=== PATIENT | female | born 1935 | race Caucasian/White ===

== ENCOUNTER 2017-11-02 19:17 | Emergency (ER) | payer MEDICARE, MEDICAID ==
[~2017-11-02] VITALS: Ht 167.6 cm; Wt 103.0 kg
[~2017-11-02 19:17] MED LIST: AMLO10TA13 PO; APIX5TAB3 PO; CARV3.122 PO; DIGO125T PO; ESCI20TA38 PO; FENO160T PO; LEVE250T PO; LEVO25TA7 PO; LOSA25TA21 PO; PANT40TA4 PO
[2017-11-02] MEDS ORDERED: acetaminophen 325mg tablet PO ONE ×2 (20:25)
[2017-11-02 20:41] VITALS: BP 135/88
== END 2017-11-02 20:42 | disposition home or self-care (01) ==
LOC: ER 19:18
DX: S80.11XA Contusion of right lower leg, initial encounter (principal); J44.9 Chronic obstructive pulmonary disease, unspecified; E11.9 Type 2 diabetes mellitus without complications; W10.9XXA Fall (on) (from) unspecified stairs and steps, initial encounter; Y93.89 Activity, other specified; Y92.89 Other specified places as the place of occurrence of the external cause; Y99.8 Other external cause status
CPT/HCPCS: 73564; 99284; A6449

== ENCOUNTER 2018-01-05 12:10 | Emergency (ER) | payer MEDICARE, MEDICAID ==
[~2018-01-05] VITALS: Ht 167.6 cm; Wt 90.0 kg
[~2018-01-05 12:10] MED LIST changes: +LOSA25TA12 PO; -LOSA25TA21 PO
[2018-01-05 12:16] VITALS: BP 126/91
== END 2018-01-05 13:51 | disposition home or self-care (01) ==
LOC: ER 12:10
DX: S40.011A Contusion of right shoulder, initial encounter (principal); S80.01XA Contusion of right knee, initial encounter; S60.222A Contusion of left hand, initial encounter; S60.221A Contusion of right hand, initial encounter; I48.91 Unspecified atrial fibrillation; J44.9 Chronic obstructive pulmonary disease, unspecified; E11.9 Type 2 diabetes mellitus without complications; Z86.69 Personal history of other diseases of the nervous system and sense organs; Z79.01 Long term (current) use of anticoagulants; Z79.899 Other long term (current) drug therapy; Z95.0 Presence of cardiac pacemaker; W01.0XXA Fall on same level from slipping, tripping and stumbling without subsequent striking against object, initial encounter; Y93.89 Activity, other specified; Y92.89 Other specified places as the place of occurrence of the external cause; Y99.8 Other external cause status
CPT/HCPCS: 73030; 73090; 73130; 73564; 99284

== ENCOUNTER 2018-04-26 13:35 | Emergency (ER) | payer MEDICARE, MEDICAID ==
[~2018-04-26] VITALS: Ht 167.6 cm; Wt 114.0 kg
[~2018-04-26 13:35] MED LIST changes: -LOSA25TA12 PO; +LOSA25TA41 PO
[2018-04-26 13:48] VITALS: BP 143/96
== END 2018-04-26 15:25 | disposition home or self-care (01) ==
LOC: ER 13:36
DX: S80.11XA Contusion of right lower leg, initial encounter (principal); I80.9 Phlebitis and thrombophlebitis of unspecified site; I48.91 Unspecified atrial fibrillation; J44.9 Chronic obstructive pulmonary disease, unspecified; E11.9 Type 2 diabetes mellitus without complications; Z88.0 Allergy status to penicillin; Z88.2 Allergy status to sulfonamides; Z88.8 Allergy status to other drugs, medicaments and biological substances; Z79.899 Other long term (current) drug therapy; X58.XXXA Exposure to other specified factors, initial encounter; Y93.89 Activity, other specified; Y92.89 Other specified places as the place of occurrence of the external cause; Y99.8 Other external cause status
CPT/HCPCS: 99284

== ENCOUNTER 2018-06-08 13:00 | Emergency (ER) | payer MEDICARE, MEDICAID ==
[~2018-06-08] VITALS: Ht 167.6 cm; Wt 112.3 kg
[2018-06-08] MEDS ORDERED: CEPH-572 PO (14:11)
[2018-06-08] MEDS ORDERED: [UNRECOGNIZED DRUG - CODE] TOP (14:11)
[2018-06-08] MEDS ORDERED: MUPI22OI30 TOP (14:11)
[2018-06-08 14:24] VITALS: BP 132/104
== END 2018-06-08 14:24 | disposition home or self-care (01) ==
LOC: ER 13:01
DX: L98.498 Non-pressure chronic ulcer of skin of other sites with other specified severity (principal); I48.91 Unspecified atrial fibrillation; J44.9 Chronic obstructive pulmonary disease, unspecified; E11.9 Type 2 diabetes mellitus without complications; Z88.0 Allergy status to penicillin; Z88.2 Allergy status to sulfonamides; Z88.8 Allergy status to other drugs, medicaments and biological substances; Z79.899 Other long term (current) drug therapy
CPT/HCPCS: 99284

== ENCOUNTER 2018-07-06 10:14 | Emergency (ER) | payer MEDICARE, MEDICAID ==
[~2018-07-06] VITALS: Ht 167.6 cm; Wt 112.3 kg
[~2018-07-06 10:14] MED LIST changes: +[UNRECOGNIZED DRUG - CODE] TOP
[2018-07-06] MEDS ORDERED: amLODIPine 5mg tablet PO ONE (11:20)
[2018-07-06] MEDS ORDERED: ipratropium/albuterol 3ml nebule NEB ONE (11:20)
[2018-07-06] MEDS ORDERED: carVEDilol 12.5mg tablet PO ONE (11:24)
[2018-07-06] MEDS ORDERED: CARV-50 PO (11:27)
[2018-07-06] MEDS ORDERED: METH4TAB81 PO (11:27)
[2018-07-06] MEDS ORDERED: NITR0.4T51 SL (11:27)
[2018-07-06] MEDS ORDERED: AZIT-72 PO (11:27)
[2018-07-06 12:14] VITALS: BP 145/88
== END 2018-07-06 12:15 | disposition home or self-care (01) ==
LOC: ER 10:15
DX: J44.1 Chronic obstructive pulmonary disease with (acute) exacerbation (principal); I48.91 Unspecified atrial fibrillation; E11.9 Type 2 diabetes mellitus without complications; Z95.0 Presence of cardiac pacemaker; Z88.0 Allergy status to penicillin; Z88.2 Allergy status to sulfonamides; Z79.899 Other long term (current) drug therapy
CPT/HCPCS: 71046; 93005; 94640; 94760; 99284

== ENCOUNTER 2018-12-09 12:36 | Emergency (ER) | payer MEDICARE, MEDICAID ==
[~2018-12-09] VITALS: Ht 167.6 cm; Wt 120.0 kg
[~2018-12-09 12:36] MED LIST changes: +CARV-50 PO; -CARV3.122 PO; -DIGO125T PO; +METH4TAB81 PO; +NITR0.4T51 SL
[2018-12-09 13:06] LABS: BASOPHILS % (AUTO) 0.5 % (0-1); EOSINOPHILS # (AUTO) 0.1 X10'3 (0-0.9); EOSINOPHILS % (AUTO) 2.4 % (0-6); HEMATOCRIT 41.5 % (35.0-45.0); HEMOGLOBIN 13.9 g/dl (12.0-16.0); LYMPHOCYTES # (AUTO) 1.3 X10'3 (1.1-4.8); LYMPHOCYTES % (AUTO) 22.4 % (21-51); MEAN CORPUSCULAR HEMOGLOBIN 32.2 PG (27.0-31.0); MEAN CORPUSCULAR HGB CONC 33.5 g/dL (33.0-36.5); MEAN CORPUSCULAR VOLUME 96.2 FL (78-98); MEAN PLATELET VOLUME 6.9 FL (7.4-10.4); MONOCYTES # (AUTO) 0.4 X10'3 (0-0.9); MONOCYTES % (AUTO) 6.9 % (2-12); NEUTROPHILS % (AUTO) 67.8 % (42-75); PLATELET COUNT 251 X10'3 (140-440); RED BLOOD COUNT 4.32 X10'6 (4.20-5.60); RED CELL DISTRIBUTION WIDTH 14.1 % (11.5-14.5); WHITE BLOOD COUNT 5.9 X10'3 (4.5-11.0)
[2018-12-09] MEDS ORDERED: predniSONE 20 mg tablet PO ONE (13:20)
[2018-12-09] MEDS ORDERED: ipratropium/albuterol 3ml nebule NEB ONE (13:20)
[2018-12-09 13:25] LABS: ALANINE AMINOTRANSFERASE 25 U/L (12-78); ALBUMIN 3.7 G/DL (3.4-5.0); ALKALINE PHOSPHATASE 50 IU/L (46-116); ANION GAP 9 (8-16); ASPARTATE AMINO TRANSFERASE 17 U/L (10-37); BILIRUBIN,TOTAL 0.7 MG/DL (0.1-1.0); BLOOD UREA NITROGEN 23 MG/DL (7-18); BUN/CREATININE RATIO 20.2 (6.6-38.0); CALCIUM 8.9 MG/DL (8.5-10.1); CHLORIDE 107 MMOL/L (99-107); CREATININE 1.14 MG/DL (0.40-0.90); GLUCOSE 177 MG/DL (70-104); POTASSIUM 4.3 MMOL/L (3.5-5.1); SODIUM 144 MMOL/L (135-145); TOTAL CARBON DIOXIDE 27.9 MMOL/L (24-32); TOTAL PROTEIN 7.4 G/DL (6.4-8.2); eGFR 46 ML/MIN
[2018-12-09] MEDS ORDERED: LEVO750T21 PO (13:50)
[2018-12-09] MEDS ORDERED: PRED20TA PO (13:50)
[2018-12-09 14:03] VITALS: BP 109/75
== END 2018-12-09 13:55 | disposition home or self-care (01) ==
LOC: ER 12:37
DX: J44.1 Chronic obstructive pulmonary disease with (acute) exacerbation (principal); F03.90 Unspecified dementia, unspecified severity, without behavioral disturbance, psychotic disturbance, mood disturbance, and anxiety; I48.91 Unspecified atrial fibrillation; E11.9 Type 2 diabetes mellitus without complications; Z88.0 Allergy status to penicillin; Z88.2 Allergy status to sulfonamides; Z88.8 Allergy status to other drugs, medicaments and biological substances; Z79.899 Other long term (current) drug therapy; Z79.2 Long term (current) use of antibiotics; Z86.69 Personal history of other diseases of the nervous system and sense organs; Z95.0 Presence of cardiac pacemaker
CPT/HCPCS: 36415; 71046; 80053; 83605; 85025; 87040; 94640; 94760; 99284; J7512

== ENCOUNTER 2018-12-18 16:16 | Emergency (ER) | payer MEDICARE, MEDICAID ==
[~2018-12-18] VITALS: Ht 167.6 cm; Wt 117.0 kg
[2018-12-18 19:08] VITALS: BP 114/89
== END 2018-12-18 19:14 | disposition home or self-care (01) ==
LOC: ER 16:16
DX: S46.812A Strain of other muscles, fascia and tendons at shoulder and upper arm level, left arm, initial encounter (principal); M25.551 Pain in right hip; I48.91 Unspecified atrial fibrillation; J44.9 Chronic obstructive pulmonary disease, unspecified; E11.9 Type 2 diabetes mellitus without complications; Z95.0 Presence of cardiac pacemaker; Z86.69 Personal history of other diseases of the nervous system and sense organs; Z88.0 Allergy status to penicillin; Z88.2 Allergy status to sulfonamides; Z88.8 Allergy status to other drugs, medicaments and biological substances; Z79.899 Other long term (current) drug therapy; W18.39XA Other fall on same level, initial encounter; Y93.89 Activity, other specified; Y92.89 Other specified places as the place of occurrence of the external cause; Y99.8 Other external cause status
CPT/HCPCS: 73030; 73502; 99284

== ENCOUNTER 2019-03-01 09:01 | Emergency (ER) | payer MEDICAID, MEDICARE ==
[~2019-03-01] VITALS: Ht 167.6 cm; Wt 115.9 kg
[2019-03-01 10:55] LABS: BASOPHILS # (AUTO) 0.1 X10'3 (0-0.2); EOSINOPHILS # (AUTO) 0.2 X10'3 (0-0.9); EOSINOPHILS % (AUTO) 3.3 % (0-6); HEMOGLOBIN 13.8 g/dl (12.0-16.0); LYMPHOCYTES # (AUTO) 1.4 X10'3 (1.1-4.8); LYMPHOCYTES % (AUTO) 27.6 % (21-51); MEAN CORPUSCULAR HEMOGLOBIN 31.8 PG (27.0-31.0); MEAN CORPUSCULAR HGB CONC 33.6 g/dL (33.0-36.5); MEAN CORPUSCULAR VOLUME 94.7 FL (78-98); MONOCYTES # (AUTO) 0.4 X10'3 (0-0.9); MONOCYTES % (AUTO) 7.8 % (2-12); NEUTROPHILS # (AUTO) 3.1 X10'3 (1.8-7.7); NEUTROPHILS % (AUTO) 60.3 % (42-75); PLATELET COUNT 271 X10'3 (140-440); RED BLOOD COUNT 4.33 X10'6 (4.20-5.60); RED CELL DISTRIBUTION WIDTH 14.1 % (11.5-14.5); WHITE BLOOD COUNT 5.2 X10'3 (4.5-11.0)
[2019-03-01 11:05] LABS: ALANINE AMINOTRANSFERASE 24 U/L (12-78); ALBUMIN 3.6 G/DL (3.4-5.0); ALKALINE PHOSPHATASE 59 IU/L (46-116); ANION GAP 7 (8-16); ASPARTATE AMINO TRANSFERASE 14 U/L (10-37); BILIRUBIN,TOTAL 0.4 MG/DL (0.1-1.0); BLOOD UREA NITROGEN 31 MG/DL (7-18); BUN/CREATININE RATIO 21.2 (6.6-38.0); CHLORIDE 104 MMOL/L (99-107); CREATININE 1.46 MG/DL (0.40-0.90); GLUCOSE 172 MG/DL (70-104); POTASSIUM 4.2 MMOL/L (3.5-5.1); SODIUM 140 MMOL/L (135-145); TOTAL CARBON DIOXIDE 28.8 MMOL/L (24-32); TOTAL PROTEIN 7.2 G/DL (6.4-8.2); eGFR 34 ML/MIN
[2019-03-01] MEDS ORDERED: predniSONE 20 mg tablet PO ONE (11:10)
[2019-03-01] MEDS ORDERED: ipratropium/albuterol 3ml nebule NEB ONE (11:10)
[2019-03-01] MEDS ORDERED: AZIT-72 PO (11:48)
[2019-03-01] MEDS ORDERED: PRED20TA PO (11:48)
[2019-03-01] MEDS ORDERED: LEVO750T21 PO (12:22)
[2019-03-01 12:34] VITALS: BP 101/47
== END 2019-03-01 12:36 | disposition home or self-care (01) ==
LOC: ER 09:02
DX: J44.9 Chronic obstructive pulmonary disease, unspecified (principal); J06.9 Acute upper respiratory infection, unspecified; I48.91 Unspecified atrial fibrillation; E11.9 Type 2 diabetes mellitus without complications; Z86.69 Personal history of other diseases of the nervous system and sense organs; Z95.0 Presence of cardiac pacemaker; Z88.0 Allergy status to penicillin; Z88.2 Allergy status to sulfonamides; Z88.8 Allergy status to other drugs, medicaments and biological substances; Z79.899 Other long term (current) drug therapy
CPT/HCPCS: 36415; 71045; 80053; 84484; 85025; 93005; 94640; 99284; J7512

== ENCOUNTER 2019-03-22 19:38 | Inpatient (IN) | payer MEDICARE, MEDICAID ==
[~2019-03-22] VITALS: Ht 167.6 cm; Wt 117.9 kg
[~2019-03-22 19:38] MED LIST changes: -ESCI20TA38 PO; +ESCI20TA45 PO
--- NOTE | 2019-03-22 20:35 | NUR ---
DR. MCCARTY IN ROOM TO SEE PT.
[2019-03-22 20:44] LABS: BASOPHILS % (AUTO) 0.3 % (0-1); EOSINOPHILS # (AUTO) 0.1 X10'3 (0-0.9); HEMATOCRIT 39.4 % (35.0-45.0); HEMOGLOBIN 13.2 g/dl (12.0-16.0); LYMPHOCYTES # (AUTO) 1.5 X10'3 (1.1-4.8); LYMPHOCYTES % (AUTO) 23.9 % (21-51); MEAN CORPUSCULAR HEMOGLOBIN 31.8 PG (27.0-31.0); MEAN CORPUSCULAR HGB CONC 33.5 g/dL (33.0-36.5); MEAN CORPUSCULAR VOLUME 94.8 FL (78-98); MEAN PLATELET VOLUME 7.4 FL (7.4-10.4); MONOCYTES # (AUTO) 0.6 X10'3 (0-0.9); MONOCYTES % (AUTO) 9.3 % (2-12); NEUTROPHILS % (AUTO) 64.5 % (42-75); PLATELET COUNT 204 X10'3 (140-440); RED BLOOD COUNT 4.16 X10'6 (4.20-5.60); RED CELL DISTRIBUTION WIDTH 14.4 % (11.5-14.5); WHITE BLOOD COUNT 6.3 X10'3 (4.5-11.0)
[2019-03-22 20:52] LABS: PARTIAL THROMBOPLASTIN TIME 32 SECONDS (22-32)
[2019-03-22 20:54] LABS: ALANINE AMINOTRANSFERASE 28 U/L (12-78); ALBUMIN 3.7 G/DL (3.4-5.0); ALBUMIN/GLOBULIN RATIO 1.2 (1.1-1.5); ALKALINE PHOSPHATASE 54 IU/L (46-116); ANION GAP 10 (8-16); ASPARTATE AMINO TRANSFERASE 22 U/L (10-37); BILIRUBIN,TOTAL 0.7 MG/DL (0.1-1.0); BLOOD UREA NITROGEN 28 MG/DL (7-18); BUN/CREATININE RATIO 21.2 (6.6-38.0); CALCIUM 8.6 MG/DL (8.5-10.1); CHLORIDE 109 MMOL/L (99-107); CREATININE 1.32 MG/DL (0.40-0.90); GLUCOSE 99 MG/DL (70-104); SODIUM 145 MMOL/L (135-145); TOTAL CARBON DIOXIDE 26.2 MMOL/L (24-32); TOTAL PROTEIN 6.8 G/DL (6.4-8.2); eGFR 39 ML/MIN
[2019-03-22 21:01] LABS: MAGNESIUM 1.8 MG/DL (1.5-2.4)
[2019-03-22 22:32] LABS: CLARITY,URINE SLIGHTLY CLOUDY (Clear); COLOR,URINE AMBER (Yellow); GLUCOSE, URINE NEGATIVE (Neg); KETONES,URINE NEGATIVE (Neg); LEUKOCYTE ESTERASE ,URINE NEGATIVE (Neg); NITRITES, URINE POSITIVE (Neg); OCCULT BLOOD,URINE NEGATIVE (Neg); PROTEIN,URINE 30 mg/dl (Neg)
[2019-03-22 23:06] LABS: UA COLLECTION TYPE STRAIGHT CATH
[2019-03-22 23:10] LABS: BACTERIA,URINE 4+ /HPF (Neg); MUCUS STRANDS NONE SEEN /LPF (Neg); RBC,URINE NONE SEEN /HPF (0-2); SQUAMOUS EPITHELIAL CELL,UR NONE SEEN /LPF (FEW); WBC,URINE 0-4 /HPF (0-4)
[2019-03-22 23:11] LABS: TRANSITIONAL EPI CELLS,URINE MODERATE /HPF
[2019-03-22] MEDS ORDERED: ciprofloxacin lact 400MG/200ML 200 ML IV SCH (23:25)
[2019-03-23] MEDS ORDERED: TRIA1TAB3 PO (00:51)
[2019-03-23] MEDS ORDERED: ACET-2119 PO (00:52)
[2019-03-23] MEDS ORDERED: HYDR-4383 PO (00:52)
[2019-03-23] MEDS ORDERED: LORA10CA PO (00:54)
[2019-03-23] MEDS ORDERED: DILT-94 PO (00:55)
[2019-03-23] MEDS ORDERED: NITR0.4T51 SL (00:56)
[2019-03-23] MEDS ORDERED: SUMA25TA35 PO (00:57)
[2019-03-23] MEDS ORDERED: OSC500T PO (00:58)
[2019-03-23] MEDS ORDERED: ASCO500C15 PO (00:59)
[2019-03-23] MEDS ORDERED: acetaminophen 325mg tablet PO PRN (01:35)
[2019-03-23] MEDS ORDERED: mag hydrox/Alum hydrox/simeth 30ml oral suspension PO PRN (01:35)
[2019-03-23] MEDS ORDERED: ondansetron/PF 4mg/2ml inj IV PRN (01:35)
[2019-03-23] MEDS ORDERED: magnesium hydroxide 30ml (MOM) UD suspension PO PRN (01:35)
[2019-03-23] MEDS ORDERED: nitroGLYCERIN 0.4mg SUBLingual tab SL PRN (01:35)
[2019-03-23 04:30] VITALS: BP 175/123
[2019-03-23 06:00] VITALS: BP 173/117
--- NOTE | 2019-03-23 06:59 | NUR ---
REPORT TO LEIGH
--- NOTE | 2019-03-23 07:59 | NUR ---
PAGER ID: [phone] MESSAGE: [phone] LAURITA MANLEY Heart rate has been in the 120's -130's underlined pacer in Afibb. Also BP at 0600 173/117, I will give BP meds early then recheck. Marie [phone]
[2019-03-23] MEDS: apixaban 5mg tablet PO SCH (08:07)
[2019-03-23] MEDS: acetaminophen 325mg tablet PO SCH ×2 (08:07→19:51)
[2019-03-23] MEDS: levoTHYROXINE 25mcg tablet PO SCH (08:07)
[2019-03-23] MEDS: levetiracetam 250mg tablet PO SCH ×2 (08:07→19:51)
[2019-03-23] MEDS: diltiazem 30mg tablet PO SCH ×2 (08:08→16:22)
[2019-03-23] MEDS: carVEDilol 12.5mg tablet PO SCH ×2 (08:08→19:51)
[2019-03-23] MEDS: pantoprazole 40mg Tablet.DR PO SCH (08:08)
[2019-03-23] MEDS: ESCITALOPRAM OXALATE 5 MG TABLET PO SCH (08:12)
[2019-03-23 10:00] VITALS: BP 146/96
[2019-03-23] MEDS: ciprofloxacin 250mg tablet PO SCH ×2 (13:08→19:51)
[2019-03-23 18:00] VITALS: BP 137/113
[2019-03-23 19:45] VITALS: BP 169/118
[2019-03-23] MEDS: HYDROcodone/acetaminophen 5mg/325mg tablet PO PRN (21:26)
[2019-03-23 22:00] VITALS: BP 153/104
[2019-03-24] VITALS (9 sets, daily range): BP systolic 142–195; BP diastolic 107–135
[2019-03-24] MEDS: diltiazem 30mg tablet PO SCH ×3 (00:16→16:00)
[2019-03-24] MEDS: acetaminophen 325mg tablet PO SCH ×2 (00:25→08:18)
--- NOTE | 2019-03-24 02:55 | NUR ---
notified Dr. Feliz of elevated BP. no orders received.
[2019-03-24] MEDS: HYDROcodone/acetaminophen 5mg/325mg tablet PO PRN ×2 (05:02→17:33)
[2019-03-24 06:05] LABS: BASOPHILS % (AUTO) 0.4 % (0-1); EOSINOPHILS # (AUTO) 0.2 X10'3 (0-0.9); EOSINOPHILS % (AUTO) 2.3 % (0-6); HEMATOCRIT 38.7 % (35.0-45.0); HEMOGLOBIN 12.9 g/dl (12.0-16.0); LYMPHOCYTES # (AUTO) 1.2 X10'3 (1.1-4.8); LYMPHOCYTES % (AUTO) 18.4 % (21-51); MEAN CORPUSCULAR HEMOGLOBIN 31.7 PG (27.0-31.0); MEAN CORPUSCULAR HGB CONC 33.4 g/dL (33.0-36.5); MEAN PLATELET VOLUME 7.7 FL (7.4-10.4); MONOCYTES # (AUTO) 0.6 X10'3 (0-0.9); MONOCYTES % (AUTO) 9.1 % (2-12); NEUTROPHILS # (AUTO) 4.7 X10'3 (1.8-7.7); NEUTROPHILS % (AUTO) 69.8 % (42-75); PLATELET COUNT 189 X10'3 (140-440); RED BLOOD COUNT 4.08 X10'6 (4.20-5.60); RED CELL DISTRIBUTION WIDTH 14.2 % (11.5-14.5); WHITE BLOOD COUNT 6.7 X10'3 (4.5-11.0)
[2019-03-24 06:17] LABS: ALBUMIN 3.7 G/DL (3.4-5.0); ANION GAP 9 (8-16); BILIRUBIN,TOTAL 0.8 MG/DL (0.1-1.0); BLOOD UREA NITROGEN 18 MG/DL (7-18); CALCIUM 8.4 MG/DL (8.5-10.1); CHLORIDE 107 MMOL/L (99-107); GLUCOSE 111 MG/DL (70-104); POTASSIUM 3.7 MMOL/L (3.5-5.1); SODIUM 144 MMOL/L (135-145); TOTAL CARBON DIOXIDE 28.3 MMOL/L (24-32); TOTAL PROTEIN 6.7 G/DL (6.4-8.2); eGFR 53 ML/MIN
[2019-03-24 06:18] LABS: ALANINE AMINOTRANSFERASE 32 U/L (12-78); ALBUMIN/GLOBULIN RATIO 1.2 (1.1-1.5); ALKALINE PHOSPHATASE 52 IU/L (46-116); ASPARTATE AMINO TRANSFERASE 29 U/L (10-37)
--- NOTE | 2019-03-24 06:42 | NUR ---
reported to days. noted pt has bed alarm active. noted need for orthostatic BP today.
[2019-03-24] MEDS: ESCITALOPRAM OXALATE 5 MG TABLET PO SCH (08:18)
[2019-03-24] MEDS: pantoprazole 40mg Tablet.DR PO SCH (08:18)
[2019-03-24] MEDS: levetiracetam 250mg tablet PO SCH ×2 (08:18→19:38)
[2019-03-24] MEDS: apixaban 5mg tablet PO SCH (08:18)
[2019-03-24] MEDS: levoTHYROXINE 25mcg tablet PO SCH (08:18)
[2019-03-24] MEDS: carVEDilol 12.5mg tablet PO SCH ×2 (08:18→19:38)
--- NOTE | 2019-03-24 09:00 | NUR ---
Spoke with daughter regarding patient's confusion. I asked her if she sundowned, she stated no that she only has trouble finding words at times. She stated that the patient has an allergy to penicillins and told me her adverse reactions were confusion, watery eyes, swelling, and jaundice which is now charted. I will notify the doctor, and will continue to monitor patient.
--- NOTE | 2019-03-24 09:24 | NUR ---
PAGER ID: [phone] MESSAGE: [phone] Bisi Mccormack Pt is not at base line, per family and myself, it started last night. Granddaughter called and stated she is allergic to Penicillin's. Do you want me to hold the 10am dose of Cipro, fluids? Benadryl? Marie [phone]
[2019-03-24] MEDS ORDERED: hydrALAZINE 20mg/ml inj. IV ONE (10:00)
--- NOTE | 2019-03-24 11:17 | NUR ---
AFTER HYDRALAZINE WAS PUSHED. Addendum: 03/24/19 at 1117 by Marie Briggs RN Amended: Links added.
[2019-03-24] MEDS: MEROPENEM 1GM/NS 50ML IVPB 50 ML IV SCH (15:59)
--- NOTE | 2019-03-24 18:28 | NUR ---
Problems reprioritized. Patient report given, questions answered & plan of care reviewed with Cade TAYLOR.
[2019-03-24] MEDS ORDERED: diphenhydrAMINE 25mg capsule PO ONE (19:00)
[2019-03-24] MEDS ORDERED: diphenhydrAMINE 25 MG/10 ML UD oral solution PO ONE (19:20)
[2019-03-24] MEDS: lactobacillus rhamnosus 10,000 MMU CELLS/CAPSULE PO SCH (19:38)
[2019-03-25] MEDS: hydrALAZINE 20mg/ml inj. IV PRN ×2 (00:20→06:04)
[2019-03-25] MEDS: diltiazem 30mg tablet PO SCH ×6 (00:25→23:28)
[2019-03-25] MEDS: MEROPENEM 1GM/NS 50ML IVPB 50 ML IV SCH ×3 (00:25→16:38)
[2019-03-25 00:30] VITALS: BP 160/120
--- NOTE | 2019-03-25 01:12 | NUR ---
IV abx hung on patient. waited in room for observation as this is 2nd dose of new medication. pt had no symptoms, tolerated well.
[2019-03-25] MEDS: HYDROcodone/acetaminophen 5mg/325mg tablet PO PRN (04:30)
--- NOTE | 2019-03-25 04:43 | NUR ---
pt refuses to leave oxygen on. c/o pain, but unable to state where pain is. norco given for pain.
[2019-03-25 05:00] VITALS: BP 158/122
--- NOTE | 2019-03-25 06:00 | NUR ---
Patient in room ORTHO 4010. I have received report from BRANDON Das and had the opportunity to ask questions and assume patient care.
[2019-03-25 06:21] LABS: BASOPHILS % (AUTO) 0.4 % (0-1); EOSINOPHILS # (AUTO) 0.1 X10'3 (0-0.9); EOSINOPHILS % (AUTO) 1.5 % (0-6); HEMATOCRIT 39.1 % (35.0-45.0); HEMOGLOBIN 13.2 g/dl (12.0-16.0); LYMPHOCYTES # (AUTO) 1.1 X10'3 (1.1-4.8); LYMPHOCYTES % (AUTO) 15.4 % (21-51); MEAN CORPUSCULAR HEMOGLOBIN 31.8 PG (27.0-31.0); MEAN CORPUSCULAR HGB CONC 33.8 g/dL (33.0-36.5); MEAN PLATELET VOLUME 7.5 FL (7.4-10.4); MONOCYTES # (AUTO) 0.6 X10'3 (0-0.9); NEUTROPHILS # (AUTO) 5.5 X10'3 (1.8-7.7); NEUTROPHILS % (AUTO) 74.7 % (42-75); PLATELET COUNT 210 X10'3 (140-440); RED BLOOD COUNT 4.16 X10'6 (4.20-5.60); WHITE BLOOD COUNT 7.4 X10'3 (4.5-11.0)
[2019-03-25 06:30] LABS: ALANINE AMINOTRANSFERASE 36 U/L (12-78); ALBUMIN 3.9 G/DL (3.4-5.0); ALBUMIN/GLOBULIN RATIO 1.2 (1.1-1.5); ALKALINE PHOSPHATASE 56 IU/L (46-116); ANION GAP 10 (8-16); ASPARTATE AMINO TRANSFERASE 30 U/L (10-37); BILIRUBIN,TOTAL 1.1 MG/DL (0.1-1.0); BLOOD UREA NITROGEN 14 MG/DL (7-18); BUN/CREATININE RATIO 15.9 (6.6-38.0); CALCIUM 8.5 MG/DL (8.5-10.1); CHLORIDE 102 MMOL/L (99-107); CREATININE 0.88 MG/DL (0.40-0.90); GLUCOSE 128 MG/DL (70-104); POTASSIUM 3.7 MMOL/L (3.5-5.1); SODIUM 141 MMOL/L (135-145); TOTAL CARBON DIOXIDE 29.3 MMOL/L (24-32); TOTAL PROTEIN 7.2 G/DL (6.4-8.2); eGFR 62 ML/MIN
--- NOTE | 2019-03-25 06:30 | NUR ---
reported to days. noted pt not able to answer questions, pt in constant motion, answers questions with a "yes" instead of answering the questions.
[2019-03-25] MEDS: levoTHYROXINE 25mcg tablet PO SCH (07:45)
[2019-03-25] MEDS: pantoprazole 40mg Tablet.DR PO SCH (07:46)
[2019-03-25] MEDS: levetiracetam 250mg tablet PO SCH ×2 (07:47→23:27)
[2019-03-25] MEDS: apixaban 5mg tablet PO SCH (07:47)
[2019-03-25] MEDS: carVEDilol 12.5mg tablet PO SCH ×2 (07:47→23:28)
[2019-03-25] MEDS: lactobacillus rhamnosus 10,000 MMU CELLS/CAPSULE PO SCH ×2 (07:47→20:00)
[2019-03-25] MEDS: acetaminophen 325mg tablet PO SCH ×2 (07:48→20:00)
[2019-03-25] MEDS: ESCITALOPRAM OXALATE 5 MG TABLET PO SCH (07:48)
[2019-03-25] MEDS ORDERED: hydrALAZINE 20mg/ml inj. IV PRN (08:15)
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
--- NOTE | 2019-03-25 14:02 | NUR ---
promotional table spacer PAGER ID: [phone] MESSAGE: Ortho Neuro [phone] called neuro RN, recommends stat CT to head since any neurologist will want that. Is that ok with you? Dorys conner [phone] (133 character message out of a maximum of [phone])
--- NOTE | 2019-03-25 14:07 | NUR ---
PC Dr. Melo for neural consult, he will call back.
[2019-03-25 14:43] VITALS: BP 157/133
--- NOTE | 2019-03-25 14:52 | NUR ---
Pt left unit in W/C for CT to head. RN is calling [facility] neurology clinic to find out what type of shunt since Dr. Melo wants MRI
--- NOTE | 2019-03-25 15:06 | NUR ---
Pt came back from CT in wheelchair, no noted stress.
--- NOTE | 2019-03-25 15:14 | NUR ---
Stroke team consultation: Alerted to pt. d/t ALOC over the last 24hrs and possible aphasia. Pt. has a significant history of seizure disorder, [employer] shunt, brain injury, dementia. She was admitted with a UTI and frequent falls. Currently, pt. is hypertensive and tachycardic, h/o atrial fib, on multiple medications for rate control and eliquis as well. She NICHOLE with seemingly equal strength but does not follow commands. With some prompting she is able to attend to voice and say "yes." Unable to elicit any other verbal response. Apparently she was entirely conversive on admission. Dr. Melo contacted for neurology consultation. Dr. White actively involved. Neurology requests MRI, however, we are unable to obtain one at this time as MRI compatibility clearance has not been obtained. A head CT has been obtained and relayed to neurology. Other findings include a persistent elevated blood pressure and atrial fibrillation with poor rate control. Discussed this with Dr. White. Suggest EEG and echo to continue workup while awaiting neurology or transfer to [facility] for specialized care.
--- NOTE | 2019-03-25 17:01 | NUR ---
Pt refused Cardizem at 1600
[2019-03-25 18:00] VITALS: BP 145/110
--- NOTE | 2019-03-25 18:00 | NUR ---
Problems reprioritized. Patient report given, questions answered & plan of care reviewed with BRANDON Jean.
[2019-03-25 20:00] VITALS: BP_SYST 168; BP_SYST 170; BP_DIAS 110; BP_DIAS 120
[2019-03-25 22:00] VITALS: BP 168/120
[2019-03-26] MEDS: MEROPENEM 1GM/NS 50ML IVPB 50 ML IV SCH ×4 (00:23→23:28)
[2019-03-26 01:00] VITALS: BP 170/110
[2019-03-26 06:00] VITALS: BP 150/120
--- NOTE | 2019-03-26 06:59 | NUR ---
Patient in room ORTHO 4010. I have received report from Olivia TAYLOR and had the opportunity to ask questions and assume patient care.
[2019-03-26 07:23] LABS: BASOPHILS % (AUTO) 0.4 % (0-1); EOSINOPHILS # (AUTO) 0.1 X10'3 (0-0.9); HEMATOCRIT 39.8 % (35.0-45.0); HEMOGLOBIN 13.3 g/dl (12.0-16.0); LYMPHOCYTES # (AUTO) 1.2 X10'3 (1.1-4.8); LYMPHOCYTES % (AUTO) 18.2 % (21-51); MEAN CORPUSCULAR HEMOGLOBIN 31.3 PG (27.0-31.0); MEAN CORPUSCULAR HGB CONC 33.4 g/dL (33.0-36.5); MEAN CORPUSCULAR VOLUME 93.7 FL (78-98); MEAN PLATELET VOLUME 7.4 FL (7.4-10.4); MONOCYTES # (AUTO) 0.7 X10'3 (0-0.9); MONOCYTES % (AUTO) 10.3 % (2-12); NEUTROPHILS # (AUTO) 4.6 X10'3 (1.8-7.7); NEUTROPHILS % (AUTO) 70.1 % (42-75); PLATELET COUNT 210 X10'3 (140-440); RED BLOOD COUNT 4.25 X10'6 (4.20-5.60); RED CELL DISTRIBUTION WIDTH 14.5 % (11.5-14.5); WHITE BLOOD COUNT 6.6 X10'3 (4.5-11.0)
[2019-03-26] MEDS: pantoprazole 40mg Tablet.DR PO SCH ×2 (07:30→09:28)
[2019-03-26] MEDS: levoTHYROXINE 25mcg tablet PO SCH ×2 (07:30→09:27)
[2019-03-26 07:33] LABS: ALANINE AMINOTRANSFERASE 32 U/L (12-78); ALBUMIN 3.7 G/DL (3.4-5.0); ALBUMIN/GLOBULIN RATIO 1.2 (1.1-1.5); ALKALINE PHOSPHATASE 58 IU/L (46-116); ANION GAP 12 (8-16); ASPARTATE AMINO TRANSFERASE 25 U/L (10-37); BILIRUBIN,TOTAL 1.4 MG/DL (0.1-1.0); BLOOD UREA NITROGEN 13 MG/DL (7-18); BUN/CREATININE RATIO 14.8 (6.6-38.0); CALCIUM 8.5 MG/DL (8.5-10.1); CHLORIDE 103 MMOL/L (99-107); CREATININE 0.88 MG/DL (0.40-0.90); GLUCOSE 115 MG/DL (70-104); POTASSIUM 3.4 MMOL/L (3.5-5.1); SODIUM 141 MMOL/L (135-145); TOTAL CARBON DIOXIDE 25.6 MMOL/L (24-32); TOTAL PROTEIN 6.9 G/DL (6.4-8.2); eGFR 62 ML/MIN
[2019-03-26] MEDS: lactobacillus rhamnosus 10,000 MMU CELLS/CAPSULE PO SCH ×3 (07:45→21:12)
[2019-03-26] MEDS: levetiracetam 250mg tablet PO SCH ×3 (07:45→21:14)
[2019-03-26] MEDS: ESCITALOPRAM OXALATE 5 MG TABLET PO SCH ×2 (07:45→09:28)
[2019-03-26] MEDS: carVEDilol 12.5mg tablet PO SCH ×3 (07:45→21:13)
[2019-03-26] MEDS: diltiazem 30mg tablet PO SCH ×3 (07:45→15:51)
[2019-03-26] MEDS: apixaban 5mg tablet PO SCH ×2 (07:45→09:28)
[2019-03-26] MEDS: acetaminophen 325mg tablet PO SCH ×4 (07:46→21:13)
[2019-03-26] MEDS ORDERED: LORazepam 2 mg/ml vial IM PRN ×3 (10:25→13:00)
[2019-03-26] MEDS ORDERED: potassium Cl 20 mEq SR tablet PO PRN (10:25)
[2019-03-26] MEDS ORDERED: potassium CL 10mEq/100ml bag 100 ML IV PRN (10:25)
[2019-03-26] MEDS: K and/or MAG REPLACEMENT MC SCH ×2 (11:00→20:00)
--- NOTE | 2019-03-26 11:47 | NUR ---
Initial: Pt admit w/ metabolic encephalopathy secondary to UTI, AOx1 global aphasia and dementia hx. PO 100% initially decreased to 25%/refusing meals and mental state worsening per MD note. RN reports pt has sitter and feeder w/ meals. LBM 03/23. Will continue to monitor for additional protein needs pending further PO hx. Rec: 1. continue regular diet; feeder at meals; encourage PO 2. monitor for ONS needs pending further PO hx 3. wt per rx Addendum: 03/26/19 at [address] Amended: Links added.
[2019-03-26] MEDS ORDERED: LORazepam 2 mg/ml vial IV PRN (12:40)
--- NOTE | 2019-03-26 12:55 | NUR ---
[place] [phone] Re: Bisi Mccormack. 0.5 Ativan did not work. Can we get 1.0 of Ativan?
--- NOTE | 2019-03-26 14:34 | NUR ---
EEG tried x2 to have test done but patient still does not hold still long enough for test. Patient has had 1.0 ativan IM prior to trying.
--- NOTE | 2019-03-26 14:52 | NUR ---
[place] [phone] Re: Bisi Mccormack Tried EEG twice but could not get it done. MRI is not compatible with Pt Pace Maker. Will set up for tele neuro consult.
[2019-03-26 18:00] VITALS: BP 158/104
--- NOTE | 2019-03-26 18:40 | NUR ---
Problems reprioritized. Patient report given, questions answered & plan of care reviewed with Alex TAYLOR.
--- NOTE | 2019-03-26 19:00 | NUR ---
Patient in room ORTHO 4010. I have received report from Kolton Woodward RN and had the opportunity to ask questions and assume patient care.
[2019-03-26] MEDS: HYDROcodone/acetaminophen 5mg/325mg tablet PO PRN (21:17)
[2019-03-26 21:44] VITALS: BP 158/104
[2019-03-26 22:19] VITALS: BP 132/92
[2019-03-27] MEDS: diltiazem 30mg tablet PO SCH ×3 (01:21→16:18)
[2019-03-27 06:00] VITALS: BP 136/100
[2019-03-27 06:05] LABS: BASOPHILS % (AUTO) 0.5 % (0-1); EOSINOPHILS # (AUTO) 0.1 X10'3 (0-0.9); EOSINOPHILS % (AUTO) 2.4 % (0-6); HEMATOCRIT 39.5 % (35.0-45.0); HEMOGLOBIN 13.3 g/dl (12.0-16.0); LYMPHOCYTES # (AUTO) 1.7 X10'3 (1.1-4.8); LYMPHOCYTES % (AUTO) 31.5 % (21-51); MEAN CORPUSCULAR HEMOGLOBIN 31.8 PG (27.0-31.0); MEAN CORPUSCULAR HGB CONC 33.8 g/dL (33.0-36.5); MEAN PLATELET VOLUME 7.2 FL (7.4-10.4); MONOCYTES # (AUTO) 0.7 X10'3 (0-0.9); MONOCYTES % (AUTO) 12.4 % (2-12); NEUTROPHILS # (AUTO) 2.9 X10'3 (1.8-7.7); NEUTROPHILS % (AUTO) 53.2 % (42-75); PLATELET COUNT 229 X10'3 (140-440); WHITE BLOOD COUNT 5.5 X10'3 (4.5-11.0)
--- NOTE | 2019-03-27 06:50 | NUR ---
Patient in room ORTHO 4010. I have received report from Alex TAYLOR and had the opportunity to ask questions and assume patient care.
[2019-03-27 06:59] LABS: ANION GAP 12 (8-16); BLOOD UREA NITROGEN 17 MG/DL (7-18); CHLORIDE 107 MMOL/L (99-107); CREATININE 0.87 MG/DL (0.40-0.90); GLUCOSE 106 MG/DL (70-104); POTASSIUM 3.4 MMOL/L (3.5-5.1); SODIUM 145 MMOL/L (135-145); TOTAL CARBON DIOXIDE 26.2 MMOL/L (24-32)
[2019-03-27 07:00] LABS: ALANINE AMINOTRANSFERASE 27 U/L (12-78); ALBUMIN 3.3 G/DL (3.4-5.0); ALBUMIN/GLOBULIN RATIO 1.1 (1.1-1.5); ALKALINE PHOSPHATASE 55 IU/L (46-116); ASPARTATE AMINO TRANSFERASE 20 U/L (10-37); BILIRUBIN,TOTAL 0.9 MG/DL (0.1-1.0); BUN/CREATININE RATIO 19.5 (6.6-38.0); CALCIUM 8.7 MG/DL (8.5-10.1); TOTAL PROTEIN 6.4 G/DL (6.4-8.2); eGFR 62 ML/MIN
[2019-03-27] MEDS: K and/or MAG REPLACEMENT MC SCH ×2 (07:30→20:00)
[2019-03-27] MEDS: MEROPENEM 1GM/NS 50ML IVPB 50 ML IV SCH ×2 (09:13→16:19)
[2019-03-27] MEDS: ESCITALOPRAM OXALATE 5 MG TABLET PO SCH (09:14)
[2019-03-27] MEDS: carVEDilol 12.5mg tablet PO SCH ×2 (09:15→20:09)
[2019-03-27] MEDS: levetiracetam 250mg tablet PO SCH ×2 (09:15→20:10)
[2019-03-27] MEDS: apixaban 5mg tablet PO SCH (09:15)
[2019-03-27] MEDS: potassium Cl 20 mEq SR tablet PO PRN ×3 (09:15→20:09)
[2019-03-27] MEDS: lactobacillus rhamnosus 10,000 MMU CELLS/CAPSULE PO SCH ×2 (09:15→20:10)
[2019-03-27] MEDS: levoTHYROXINE 25mcg tablet PO SCH (09:16)
[2019-03-27] MEDS: pantoprazole 40mg Tablet.DR PO SCH (09:16)
[2019-03-27] MEDS: acetaminophen 325mg tablet PO SCH ×2 (09:16→20:10)
[2019-03-27] MEDS: HYDROcodone/acetaminophen 5mg/325mg tablet PO PRN ×2 (09:17→20:09)
[2019-03-27 10:00] VITALS: BP 151/104
[2019-03-27 18:00] VITALS: BP 136/92
--- NOTE | 2019-03-27 18:27 | NUR ---
Problems reprioritized. Patient report given, questions answered & plan of care reviewed with Alex TAYLOR.
--- NOTE | 2019-03-27 19:00 | NUR ---
Patient in room ORTHO 4010. I have received report from Kolton TAYLOR and had the opportunity to ask questions and assume patient care.
[2019-03-27 21:36] VITALS: BP 145/101
[2019-03-27] MEDS ORDERED: ziprasidone IM 20mg inj **IM only IM ONE (23:15)
[2019-03-28] MEDS: diltiazem 30mg tablet PO SCH ×4 (00:49→23:00)
[2019-03-28] MEDS: HYDROcodone/acetaminophen 5mg/325mg tablet PO PRN ×2 (00:50→23:36)
[2019-03-28] MEDS: MEROPENEM 1GM/NS 50ML IVPB 50 ML IV SCH ×4 (00:52→23:01)
--- NOTE | 2019-03-28 01:30 | NUR ---
Pt was agitated and disoriented getting out of bed, coaxed her into chair and called her grand daughter. Her grand daughter came in and tried to calm her down but she was ineffective. Dr Bello was called and he ordered geodon to calm her down pt is now resting quietly.
[2019-03-28 06:00] VITALS: BP 149/68
--- NOTE | 2019-03-28 06:47 | NUR ---
Patient in room ORTHO 4010. I have received report from Alex TAYLOR and had the opportunity to ask questions and assume patient care.
[2019-03-28 07:30] LABS: BASOPHILS % (AUTO) 0.5 % (0-1); EOSINOPHILS # (AUTO) 0.2 X10'3 (0-0.9); EOSINOPHILS % (AUTO) 3.9 % (0-6); HEMATOCRIT 39.9 % (35.0-45.0); HEMOGLOBIN 13.3 g/dl (12.0-16.0); LYMPHOCYTES # (AUTO) 1.8 X10'3 (1.1-4.8); LYMPHOCYTES % (AUTO) 28.9 % (21-51); MEAN CORPUSCULAR HEMOGLOBIN 31.6 PG (27.0-31.0); MEAN CORPUSCULAR HGB CONC 33.3 g/dL (33.0-36.5); MEAN CORPUSCULAR VOLUME 94.7 FL (78-98); MEAN PLATELET VOLUME 7.1 FL (7.4-10.4); MONOCYTES # (AUTO) 0.8 X10'3 (0-0.9); MONOCYTES % (AUTO) 12.6 % (2-12); NEUTROPHILS # (AUTO) 3.3 X10'3 (1.8-7.7); NEUTROPHILS % (AUTO) 54.1 % (42-75); PLATELET COUNT 235 X10'3 (140-440); RED BLOOD COUNT 4.21 X10'6 (4.20-5.60); RED CELL DISTRIBUTION WIDTH 14.4 % (11.5-14.5); WHITE BLOOD COUNT 6.2 X10'3 (4.5-11.0)
[2019-03-28 07:42] LABS: ALANINE AMINOTRANSFERASE 28 U/L (12-78); ALBUMIN 3.3 G/DL (3.4-5.0); ALKALINE PHOSPHATASE 58 IU/L (46-116); ANION GAP 9 (8-16); ASPARTATE AMINO TRANSFERASE 17 U/L (10-37); BILIRUBIN,TOTAL 0.5 MG/DL (0.1-1.0); BLOOD UREA NITROGEN 21 MG/DL (7-18); BUN/CREATININE RATIO 23.3 (6.6-38.0); CHLORIDE 110 MMOL/L (99-107); GLUCOSE 114 MG/DL (70-104); SODIUM 147 MMOL/L (135-145); TOTAL CARBON DIOXIDE 28.2 MMOL/L (24-32); TOTAL PROTEIN 6.6 G/DL (6.4-8.2); eGFR 60 ML/MIN
[2019-03-28] MEDS: K and/or MAG REPLACEMENT MC SCH ×2 (08:00→20:00)
[2019-03-28] MEDS: levetiracetam 250mg tablet PO SCH ×2 (08:55→20:01)
[2019-03-28] MEDS: levoTHYROXINE 25mcg tablet PO SCH (08:55)
[2019-03-28] MEDS: lactobacillus rhamnosus 10,000 MMU CELLS/CAPSULE PO SCH ×2 (08:55→20:01)
[2019-03-28] MEDS: apixaban 5mg tablet PO SCH (08:55)
[2019-03-28] MEDS: pantoprazole 40mg Tablet.DR PO SCH (08:55)
[2019-03-28] MEDS: ESCITALOPRAM OXALATE 5 MG TABLET PO SCH (08:55)
[2019-03-28] MEDS: acetaminophen 325mg tablet PO SCH ×2 (08:55→20:01)
[2019-03-28] MEDS: carVEDilol 12.5mg tablet PO SCH ×2 (08:56→20:01)
[2019-03-28 09:40] VITALS: BP_SYST 136; BP_SYST 174; BP_SYST 192; BP_DIAS 109; BP_DIAS 114; BP_DIAS 120
[2019-03-28 10:00] VITALS: BP 130/109
--- NOTE | 2019-03-28 12:44 | NUR ---
MD spoke with family and patient about finishing ABX here at hospital for the next 2 to 3 days before discharging home. Family agreed and are willing and able to take patient home upon ABX completion.
[2019-03-28 18:00] VITALS: BP 163/107
--- NOTE | 2019-03-28 18:05 | NUR ---
Problems reprioritized. Patient report given, questions answered & plan of care reviewed with Alex TAYLOR.
--- NOTE | 2019-03-28 19:00 | NUR ---
Patient in room ORTHO 4010. I have received report from Kolton TAYLOR and had the opportunity to ask questions and assume patient care.
[2019-03-28 22:00] VITALS: BP 152/103
[2019-03-29 03:51] VITALS: BP_SYST 144; BP_SYST 150; BP_SYST 170; BP_DIAS 75; BP_DIAS 78
--- NOTE | 2019-03-29 06:31 | NUR ---
Received report from Alex TAYLOR
[2019-03-29 06:45] VITALS: BP 147/83
[2019-03-29] MEDS: K and/or MAG REPLACEMENT MC SCH (08:00)
[2019-03-29] MEDS: levetiracetam 250mg tablet PO SCH (08:01)
[2019-03-29] MEDS: lactobacillus rhamnosus 10,000 MMU CELLS/CAPSULE PO SCH (08:01)
[2019-03-29] MEDS: apixaban 5mg tablet PO SCH (08:01)
[2019-03-29] MEDS: carVEDilol 12.5mg tablet PO SCH (08:01)
[2019-03-29] MEDS: levoTHYROXINE 25mcg tablet PO SCH (08:01)
[2019-03-29] MEDS: diltiazem 30mg tablet PO SCH ×2 (08:02→16:30)
[2019-03-29] MEDS: ESCITALOPRAM OXALATE 5 MG TABLET PO SCH (08:02)
[2019-03-29] MEDS: acetaminophen 325mg tablet PO SCH (08:02)
[2019-03-29] MEDS: pantoprazole 40mg Tablet.DR PO SCH (08:02)
[2019-03-29] MEDS: MEROPENEM 1GM/NS 50ML IVPB 50 ML IV SCH ×2 (08:04→16:21)
[2019-03-29 10:56] VITALS: BP_SYST 137; BP_SYST 154; BP_SYST 163; BP_DIAS 106; BP_DIAS 98
[2019-03-29] MEDS: HYDROcodone/acetaminophen 5mg/325mg tablet PO PRN (14:46)
[2019-03-29] MEDS ORDERED: HYDR12.55 PO (16:36)
--- NOTE | 2019-03-29 17:24 | NUR ---
Patient was discharged iv and tele was removed from patient. Patient left with granddaughter medication was called into [facility] on [address].
--- NOTE | 2019-03-30 14:47 | NUR ---
Case Management DC follow up: spoke to pt Sara. daughter, Bisi Mack.States pt almost had another fall getting into care to go to appt. Pt G. verbalized understanding of meds and hwy prescribed. pt acknowledged retrieving neurologist referral from PCP. Before ending conversations, Patel hernadez reported pt is, "out of it" and are in the PCP at this time. PCP needs to request pt med records again as they still have not been faxed over at this time. Pt Patel Hernadez will call back if any further questions or concerns post visit to PCP today. No further questions at this time.
== END 2019-03-29 17:14 | disposition home or self-care (01) | DRG 689 ==
LOC: ER 19:39 → ED HOLD 03-23 01:32 → ORTHO 4S 03-23 03:57
PROVIDERS: ADMIT Internal Medicine; ATTEND Internal Medicine
PROC: 4A10X4Z Monitoring of Central Nervous Electrical Activity, External Approach (ICD-10-PCS; principal; 2019-03-27)
DX: N39.0 Urinary tract infection, site not specified (principal); G93.41 Metabolic encephalopathy; I95.1 Orthostatic hypotension; B96.20 Unspecified Escherichia coli [E. coli] as the cause of diseases classified elsewhere; E11.9 Type 2 diabetes mellitus without complications; F03.90 Unspecified dementia, unspecified severity, without behavioral disturbance, psychotic disturbance, mood disturbance, and anxiety; Z96.651 Presence of right artificial knee joint; G40.909 Epilepsy, unspecified, not intractable, without status epilepticus; I48.91 Unspecified atrial fibrillation; W18.39XA Other fall on same level, initial encounter; I25.10 Atherosclerotic heart disease of native coronary artery without angina pectoris; I50.9 Heart failure, unspecified; J44.9 Chronic obstructive pulmonary disease, unspecified; R29.6 Repeated falls; Z77.22 Contact with and (suspected) exposure to environmental tobacco smoke (acute) (chronic); Z79.01 Long term (current) use of anticoagulants; Z82.0 Family history of epilepsy and other diseases of the nervous system; Z90.710 Acquired absence of both cervix and uterus; Z98.2 Presence of cerebrospinal fluid drainage device; Z99.81 Dependence on supplemental oxygen; Z88.0 Allergy status to penicillin; Z88.2 Allergy status to sulfonamides; Z88.8 Allergy status to other drugs, medicaments and biological substances; Y93.89 Activity, other specified; Y92.89 Other specified places as the place of occurrence of the external cause; Y99.8 Other external cause status; Z95.0 Presence of cardiac pacemaker
CPT/HCPCS: 36415; 70450; 71045; 72125; 73560; 76937; 80053; 81001; 82607; 82948; 83735; 83880; 83921; 84443; 84484; 85025; 85610; 85730; 87077; 87081; 87088; 87186; 93005; 93306; 95816; 97116; 97161; 97530; 97535; 99285; G0378; J0360; J0744; J2060; J2185; J2405; J3486; Q0163

== ENCOUNTER 2019-07-16 09:51 | Emergency (ER) | payer MEDICARE, MEDICAID ==
[~2019-07-16] VITALS: Ht 167.6 cm; Wt 115.9 kg
[~2019-07-16 09:51] MED LIST changes: +ACET-2119 PO; -AMLO10TA13 PO; +ASCO500C15 PO; +DILT-94 PO; +HYDR-4383 PO; +HYDR12.55 PO; +LORA10CA PO; -METH4TAB81 PO; +OSC500T PO; +SUMA25TA35 PO
[2019-07-16 09:53] VITALS: BP 155/105
[2019-07-16] MEDS ORDERED: acetaminophen 325mg tablet PO ONE (10:05)
--- NOTE | 2019-07-16 10:30 | NUR ---
Applied ice packs to knee. Patient resting in bed, no other needs at this time.
== END 2019-07-16 11:57 | disposition home or self-care (01) ==
LOC: ER 09:52
DX: M23.8X1 Other internal derangements of right knee (principal); M25.461 Effusion, right knee; F03.90 Unspecified dementia, unspecified severity, without behavioral disturbance, psychotic disturbance, mood disturbance, and anxiety; I48.91 Unspecified atrial fibrillation; J44.9 Chronic obstructive pulmonary disease, unspecified; E11.9 Type 2 diabetes mellitus without complications; Z86.69 Personal history of other diseases of the nervous system and sense organs; Z95.0 Presence of cardiac pacemaker; Z88.2 Allergy status to sulfonamides; Z88.0 Allergy status to penicillin; Z88.8 Allergy status to other drugs, medicaments and biological substances; Z79.01 Long term (current) use of anticoagulants; Z79.899 Other long term (current) drug therapy
CPT/HCPCS: 29505; 73564; 99284

== ENCOUNTER 2019-09-13 16:22 | Emergency (ER) | payer MEDICARE, MEDICAID ==
[~2019-09-13] VITALS: Ht 167.6 cm; Wt 113.6 kg
[2019-09-13 16:25] VITALS: BP 111/78
--- NOTE | 2019-09-13 16:41 | NUR ---
Per Provider, NETTE Root who was in triage with patient, no trauma alert at this time.
[2019-09-13] MEDS ORDERED: TRAM50TA2 PO (16:55)
== END 2019-09-13 17:30 | disposition home or self-care (01) ==
LOC: ER 16:23
DX: M25.561 Pain in right knee (principal); M25.511 Pain in right shoulder; M25.521 Pain in right elbow; F03.90 Unspecified dementia, unspecified severity, without behavioral disturbance, psychotic disturbance, mood disturbance, and anxiety; I48.91 Unspecified atrial fibrillation; J44.9 Chronic obstructive pulmonary disease, unspecified; E11.9 Type 2 diabetes mellitus without complications; Z86.69 Personal history of other diseases of the nervous system and sense organs; Z95.0 Presence of cardiac pacemaker; Z98.890 Other specified postprocedural states; Z88.0 Allergy status to penicillin; Z88.2 Allergy status to sulfonamides; Z79.01 Long term (current) use of anticoagulants; Z79.899 Other long term (current) drug therapy; W19.XXXA Unspecified fall, initial encounter; Y93.89 Activity, other specified; Y92.89 Other specified places as the place of occurrence of the external cause; Y99.8 Other external cause status
CPT/HCPCS: 73030; 73564; 99284

== ENCOUNTER 2019-10-06 17:15 | Emergency (ER) | payer MEDICARE, MEDICAID ==
[~2019-10-06] VITALS: Ht 167.6 cm; Wt 118.2 kg
[~2019-10-06 17:15] MED LIST changes: +TRAM50TA2 PO
[2019-10-06] MEDS ORDERED: normal saline 1000ML IV soln IVB ONE (18:25)
[2019-10-06 18:40] LABS: BASOPHILS % (AUTO) 0.5 % (0-1); EOSINOPHILS # (AUTO) 0.1 X10'3 (0-0.9); EOSINOPHILS % (AUTO) 2.3 % (0-6); HEMATOCRIT 43.3 % (35.0-45.0); HEMOGLOBIN 14.2 g/dl (12.0-16.0); LYMPHOCYTES % (AUTO) 31.5 % (21-51); MEAN CORPUSCULAR HEMOGLOBIN 31.3 PG (27.0-31.0); MEAN CORPUSCULAR HGB CONC 32.9 g/dL (33.0-36.5); MEAN CORPUSCULAR VOLUME 95.2 FL (78-98); MONOCYTES # (AUTO) 0.6 X10'3 (0-0.9); MONOCYTES % (AUTO) 9.8 % (2-12); NEUTROPHILS # (AUTO) 3.5 X10'3 (1.8-7.7); NEUTROPHILS % (AUTO) 55.9 % (42-75); PLATELET COUNT 302 X10'3 (140-440); RED BLOOD COUNT 4.54 X10'6 (4.20-5.60); RED CELL DISTRIBUTION WIDTH 13.9 % (11.5-14.5); WHITE BLOOD COUNT 6.3 X10'3 (4.5-11.0)
[2019-10-06 18:57] LABS: CLARITY,URINE SLIGHTLY CLOUDY (Clear); COLOR,URINE YELLOW (Yellow); GLUCOSE, URINE NEGATIVE (Neg); KETONES,URINE NEGATIVE (Neg); LEUKOCYTE ESTERASE ,URINE NEGATIVE (Neg); NITRITES, URINE NEGATIVE (Neg); OCCULT BLOOD,URINE NEGATIVE (Neg); PROTEIN,URINE NEGATIVE (Neg)
[2019-10-06 18:57] LABS: ALANINE AMINOTRANSFERASE 19 U/L (12-78); ALBUMIN 3.8 G/DL (3.4-5.0); ALBUMIN/GLOBULIN RATIO 1.1 (1.1-1.5); ALKALINE PHOSPHATASE 45 IU/L (46-116); ANION GAP 7 (8-16); ASPARTATE AMINO TRANSFERASE 14 U/L (10-37); BILIRUBIN,TOTAL 0.4 MG/DL (0.1-1.0); BLOOD UREA NITROGEN 24 MG/DL (7-18); BUN/CREATININE RATIO 19.8 (6.6-38.0); CALCIUM 9.2 MG/DL (8.5-10.1); CHLORIDE 103 MMOL/L (99-107); CREATININE 1.21 MG/DL (0.40-0.90); GLUCOSE 96 MG/DL (70-104); POTASSIUM 4.3 MMOL/L (3.5-5.1); SODIUM 140 MMOL/L (135-145); TOTAL CARBON DIOXIDE 29.8 MMOL/L (24-32); TOTAL PROTEIN 7.4 G/DL (6.4-8.2); eGFR 42 ML/MIN
[2019-10-06 19:04] LABS: UA COLLECTION TYPE STRAIGHT CATH
[2019-10-06 19:08] LABS: HYALINE CASTS 0-3 /LPF (NEGATIVE); MUCUS STRANDS FEW /LPF (Neg); SQUAMOUS EPITHELIAL CELL,UR MODERATE /LPF (FEW)
[2019-10-06 19:11] LABS: BACTERIA,URINE 1+ /HPF (Neg); RBC,URINE 0-2 /HPF (0-2); WBC CLUMPS,URINE FEW /HPF (NEGATIVE)
--- NOTE | 2019-10-06 20:13 | NUR ---
CALLED NOHELIA TO [facility]IC ILLUSTRATOR SHE WILL BE HERE IN 30 MIN
[2019-10-06 20:25] VITALS: BP 143/95
== END 2019-10-06 20:44 | disposition home or self-care (01) ==
LOC: ER 17:16
DX: S00.03XA Contusion of scalp, initial encounter (principal); R51 Headache; I48.91 Unspecified atrial fibrillation; I10 Essential (primary) hypertension; J44.9 Chronic obstructive pulmonary disease, unspecified; E11.9 Type 2 diabetes mellitus without complications; Z86.69 Personal history of other diseases of the nervous system and sense organs; Z95.0 Presence of cardiac pacemaker; Z98.890 Other specified postprocedural states; Z88.0 Allergy status to penicillin; Z88.2 Allergy status to sulfonamides; Z88.8 Allergy status to other drugs, medicaments and biological substances; Z79.899 Other long term (current) drug therapy; W19.XXXA Unspecified fall, initial encounter; Y93.89 Activity, other specified; Y92.89 Other specified places as the place of occurrence of the external cause; Y99.8 Other external cause status
CPT/HCPCS: 36415; 70450; 80053; 81001; 85025; 87088; 99284; J7030

== ENCOUNTER 2019-10-25 21:19 | Emergency (ER) | payer MEDICARE, MEDICAID ==
[~2019-10-25] VITALS: Ht 167.6 cm; Wt 118.2 kg
[~2019-10-25 21:19] MED LIST changes: -TRAM50TA2 PO
[2019-10-25 21:24] VITALS: BP 149/89
[2019-10-25] MEDS ORDERED: LIDOcaine 1% W/epiNEPHrine 1:200,000 10ml vial IJ ONE (22:35)
== END 2019-10-26 00:03 | disposition home or self-care (01) ==
LOC: ER 21:20
DX: S61.213A Laceration without foreign body of left middle finger without damage to nail, initial encounter (principal); F03.90 Unspecified dementia, unspecified severity, without behavioral disturbance, psychotic disturbance, mood disturbance, and anxiety; I48.91 Unspecified atrial fibrillation; I10 Essential (primary) hypertension; J44.9 Chronic obstructive pulmonary disease, unspecified; E11.9 Type 2 diabetes mellitus without complications; Z95.0 Presence of cardiac pacemaker; Z98.890 Other specified postprocedural states; Z88.2 Allergy status to sulfonamides; Z88.0 Allergy status to penicillin; Z79.01 Long term (current) use of anticoagulants; Z79.899 Other long term (current) drug therapy; W19.XXXA Unspecified fall, initial encounter; Y93.89 Activity, other specified; Y92.89 Other specified places as the place of occurrence of the external cause; Y99.8 Other external cause status
CPT/HCPCS: 12002; 99282

== ENCOUNTER 2020-01-04 10:41 | Emergency (ER) | payer MEDICARE, MEDICAID ==
[~2020-01-04] VITALS: Ht 167.6 cm; Wt 118.2 kg
[~2020-01-04 10:41] MED LIST changes: -ASCO500C15 PO; +ASCO500C18 PO; -PANT40TA4 PO; +PANT40TA54 PO
[2020-01-04] MEDS ORDERED: acetaminophen 325mg tablet PO ONE (11:35)
[2020-01-04] MEDS ORDERED: normal saline 1000ML IV soln IVB ONE (11:35)
[2020-01-04 11:53] LABS: BASOPHILS # (AUTO) 0.1 X10'3 (0-0.2); BASOPHILS % (AUTO) 0.8 % (0-1); EOSINOPHILS # (AUTO) 0.2 X10'3 (0-0.9); EOSINOPHILS % (AUTO) 2.5 % (0-6); HEMATOCRIT 45.2 % (35.0-45.0); HEMOGLOBIN 14.9 g/dl (12.0-16.0); LYMPHOCYTES # (AUTO) 1.9 X10'3 (1.1-4.8); LYMPHOCYTES % (AUTO) 27.2 % (21-51); MEAN CORPUSCULAR HEMOGLOBIN 31.3 PG (27.0-31.0); MEAN CORPUSCULAR HGB CONC 33.1 g/dL (33.0-36.5); MEAN CORPUSCULAR VOLUME 94.8 FL (78-98); MEAN PLATELET VOLUME 7.3 FL (7.4-10.4); MONOCYTES # (AUTO) 0.5 X10'3 (0-0.9); MONOCYTES % (AUTO) 6.8 % (2-12); NEUTROPHILS # (AUTO) 4.4 X10'3 (1.8-7.7); NEUTROPHILS % (AUTO) 62.7 % (42-75); PLATELET COUNT 309 X10'3 (140-440); RED BLOOD COUNT 4.76 X10'6 (4.20-5.60); RED CELL DISTRIBUTION WIDTH 16.4 % (11.5-14.5)
[2020-01-04 12:02] LABS: ALANINE AMINOTRANSFERASE 18 U/L (12-78); ALBUMIN 4.1 G/DL (3.4-5.0); ALKALINE PHOSPHATASE 67 IU/L (46-116); ANION GAP 10 (8-16); ASPARTATE AMINO TRANSFERASE 15 U/L (10-37); BILIRUBIN,TOTAL 0.6 MG/DL (0.1-1.0); BLOOD UREA NITROGEN 21 MG/DL (7-18); BUN/CREATININE RATIO 16.8 (6.6-38.0); CALCIUM 9.7 MG/DL (8.5-10.1); CHLORIDE 103 MMOL/L (99-107); CREATININE 1.25 MG/DL (0.40-0.90); GLUCOSE 137 MG/DL (70-104); POTASSIUM 3.9 MMOL/L (3.5-5.1); SODIUM 142 MMOL/L (135-145); TOTAL CARBON DIOXIDE 29.2 MMOL/L (24-32); TOTAL PROTEIN 8.1 G/DL (6.4-8.2); eGFR 41 ML/MIN
--- NOTE | 2020-01-04 12:18 | NUR ---
back from CT
[2020-01-04 13:02] VITALS: BP 124/85
--- NOTE | 2020-01-04 13:31 | NUR ---
Contacted pt's granddaughter for transport. She requested a UA be done on pt. Explained pt's presentation did not warrant a UA @ this time and contacting PCP would be most appropriate and expeditious route for that lab.
--- NOTE | 2020-01-04 14:10 | NUR ---
Patients granddaughter here to chart picker patient at which she requested to have patient get UA obtained due to new delium and confusion. Patient already had been discharge and transported out to grand daughters car. Spoke with Dr. Hong regarding patients grand daughters request for urine sample to test for UTI. Dr. hong stated that we could bring patient back into room to obtain sample. Patient brought back to bed 16 and urine obtained by PCT Ada, sample sent to lab. Now currently awaiting urine results.
[2020-01-04 14:52] LABS: CLARITY,URINE SLIGHTLY CLOUDY (Clear); COLOR,URINE YELLOW (Yellow); GLUCOSE, URINE NEGATIVE (Neg); KETONES,URINE NEGATIVE (Neg); LEUKOCYTE ESTERASE ,URINE MODERATE (Neg); NITRITES, URINE NEGATIVE (Neg); OCCULT BLOOD,URINE NEGATIVE (Neg); PROTEIN,URINE NEGATIVE (Neg)
[2020-01-04 14:57] LABS: UA COLLECTION TYPE CLN CATCH MIDSTREAM
[2020-01-04 14:59] LABS: MUCUS STRANDS MANY /LPF (Neg); SQUAMOUS EPITHELIAL CELL,UR MANY /LPF (FEW)
[2020-01-04 15:03] LABS: RBC,URINE 0-2 /HPF (0-2); WBC,URINE 20-30 /HPF (0-4)
[2020-01-04 15:04] LABS: BACTERIA,URINE 3+ /HPF (Neg)
[2020-01-04] MEDS ORDERED: azithromycin 250mg tablet PO ONE (15:25)
[2020-01-04] MEDS ORDERED: AZIT-63 PO (15:26)
== END 2020-01-04 13:35 | disposition home or self-care (01) ==
LOC: ER 10:41
DX: S13.4XXA Sprain of ligaments of cervical spine, initial encounter (principal); S00.83XA Contusion of other part of head, initial encounter; N39.0 Urinary tract infection, site not specified; E66.9 Obesity, unspecified; I48.91 Unspecified atrial fibrillation; I10 Essential (primary) hypertension; J44.9 Chronic obstructive pulmonary disease, unspecified; E11.9 Type 2 diabetes mellitus without complications; Z95.0 Presence of cardiac pacemaker; Z98.890 Other specified postprocedural states; Z79.2 Long term (current) use of antibiotics; Z79.899 Other long term (current) drug therapy; Z88.2 Allergy status to sulfonamides; Z88.0 Allergy status to penicillin; W18.30XA Fall on same level, unspecified, initial encounter; Y93.89 Activity, other specified; Y92.89 Other specified places as the place of occurrence of the external cause; Y99.9 Unspecified external cause status
CPT/HCPCS: 36415; 70450; 72125; 80053; 81001; 85025; 99285; J7030

== ENCOUNTER 2020-01-21 19:40 | Emergency (ER) | payer MEDICARE, MEDICAID ==
[~2020-01-21] VITALS: Ht 167.6 cm; Wt 118.2 kg
[~2020-01-21 19:40] MED LIST changes: +AZIT-63 PO
--- NOTE | 2020-01-21 20:08 | NUR ---
ashish has had increased weakness at home without a fall. Reports she feels wobbly and may fall at any time
[2020-01-21 21:02] LABS: ALBUMIN 3.7 G/DL (3.4-5.0); ALKALINE PHOSPHATASE 70 IU/L (46-116); ANION GAP 11 (8-16); ASPARTATE AMINO TRANSFERASE 17 U/L (10-37); BILIRUBIN,TOTAL 0.5 MG/DL (0.1-1.0); CALCIUM 9.3 MG/DL (8.5-10.1); CHLORIDE 104 MMOL/L (99-107); GLUCOSE 121 MG/DL (70-104); SODIUM 142 MMOL/L (135-145); TOTAL CARBON DIOXIDE 27.3 MMOL/L (24-32); TOTAL PROTEIN 7.4 G/DL (6.4-8.2)
[2020-01-21 21:08] LABS: EOSINOPHILS # (AUTO) 0.1 X10'3 (0-0.9); HEMATOCRIT 42.5 % (35.0-45.0); HEMOGLOBIN 14.1 g/dl (12.0-16.0); LYMPHOCYTES # (AUTO) 1.8 X10'3 (1.1-4.8); WHITE BLOOD COUNT 6.6 X10'3 (4.5-11.0)
[2020-01-21 21:11] LABS: BASOPHILS % (AUTO) 0.4 % (0-1); EOSINOPHILS % (AUTO) 2.2 % (0-6); LYMPHOCYTES % (AUTO) 27.9 % (21-51); MEAN CORPUSCULAR HEMOGLOBIN 31.1 PG (27.0-31.0); MEAN CORPUSCULAR HGB CONC 33.1 g/dL (33.0-36.5); MEAN CORPUSCULAR VOLUME 93.8 FL (78-98); MEAN PLATELET VOLUME 7.4 FL (7.4-10.4); MONOCYTES # (AUTO) 0.6 X10'3 (0-0.9); MONOCYTES % (AUTO) 9.6 % (2-12); NEUTROPHILS # (AUTO) 3.9 X10'3 (1.8-7.7); NEUTROPHILS % (AUTO) 59.9 % (42-75); PLATELET COUNT 265 X10'3 (140-440); RED BLOOD COUNT 4.53 X10'6 (4.20-5.60); RED CELL DISTRIBUTION WIDTH 15.7 % (11.5-14.5)
--- NOTE | 2020-01-21 21:13 | NUR ---
patient unable to list any dosages of medications
[2020-01-21 21:14] LABS: ALANINE AMINOTRANSFERASE 22 U/L (12-78); BLOOD UREA NITROGEN 26 MG/DL (7-18); BUN/CREATININE RATIO 20.2 (6.6-38.0); CREATININE 1.29 MG/DL (0.40-0.90); eGFR 39 ML/MIN
[2020-01-21 21:30] LABS: CLARITY,URINE CLEAR (Clear); COLOR,URINE YELLOW (Yellow); GLUCOSE, URINE NEGATIVE (Neg); KETONES,URINE NEGATIVE (Neg); LEUKOCYTE ESTERASE ,URINE TRACE (Neg); NITRITES, URINE NEGATIVE (Neg); OCCULT BLOOD,URINE NEGATIVE (Neg); PROTEIN,URINE NEGATIVE (Neg)
[2020-01-21 21:31] LABS: UA COLLECTION TYPE STRAIGHT CATH
[2020-01-21 21:35] LABS: BACTERIA,URINE 2+ /HPF (Neg); RBC,URINE NONE SEEN /HPF (0-2); SQUAMOUS EPITHELIAL CELL,UR FEW /LPF (FEW)
[2020-01-21] MEDS ORDERED: CefTRIAXone 250MG inj IV STA (21:49)
--- NOTE | 2020-01-21 21:52 | NUR ---
Dr Pizano at bedside updating pt on plan of care. reports pt ok to DC. Will be given dose of iv abx, as she still has uti. Then DC home with abx. Pt is agreeable to this plan.
[2020-01-21] MEDS ORDERED: CefTRIAXone/D5W-Rocephin 1gm 50 ML IV ONE (21:55)
[2020-01-21] MEDS ORDERED: CEPH-572 PO (21:57)
--- NOTE | 2020-01-21 22:02 | NUR ---
Pt put up for DC. Dr. Wang updated by primary RN. Herman, that pt unable to get out of bed and has severe weakness and is confused, to put pt up for admission. she is not at her baseline.
--- NOTE | 2020-01-21 22:15 | NUR ---
BRANDON watkins and MD Pizano both talking to Pts garry. Garry reports pt IS at her baseline, she will be seeing her PCP within the next 2 days and she has home health services and she is comfortable taking her home tonight. Pt to be discharged once iv abs infusion completed.
[2020-01-21 22:46] VITALS: BP 146/67
== END 2020-01-21 22:48 | disposition home or self-care (01) ==
LOC: ER 19:41
DX: N39.0 Urinary tract infection, site not specified (principal); R53.1 Weakness; R30.0 Dysuria; I48.91 Unspecified atrial fibrillation; I10 Essential (primary) hypertension; J44.9 Chronic obstructive pulmonary disease, unspecified; E11.9 Type 2 diabetes mellitus without complications; Z95.0 Presence of cardiac pacemaker; Z86.69 Personal history of other diseases of the nervous system and sense organs; Z98.890 Other specified postprocedural states; Z88.2 Allergy status to sulfonamides; Z88.0 Allergy status to penicillin; Z88.8 Allergy status to other drugs, medicaments and biological substances; Z79.2 Long term (current) use of antibiotics; Z79.899 Other long term (current) drug therapy
CPT/HCPCS: 36415; 80053; 81001; 85025; 87088; 93005; 96365; 99285; J0696; 84484

== ENCOUNTER 2020-03-18 13:53 | Emergency (ER) | payer MEDICARE, MEDICAID ==
[~2020-03-18] VITALS: Ht 167.6 cm; Wt 113.4 kg
[~2020-03-18 13:53] MED LIST changes: -AZIT-63 PO; -ESCI20TA45 PO; +ESCI20TA56 PO; -HYDR-4383 PO
[2020-03-18 15:09] LABS: BASOPHILS % (AUTO) 0.4 % (0-1); EOSINOPHILS # (AUTO) 0.1 X10'3 (0-0.9); EOSINOPHILS % (AUTO) 1.8 % (0-6); HEMATOCRIT 47.5 % (35.0-45.0); HEMOGLOBIN 15.4 g/dl (12.0-16.0); LYMPHOCYTES % (AUTO) 29.7 % (21-51); MEAN CORPUSCULAR HGB CONC 32.5 g/dL (33.0-36.5); MEAN CORPUSCULAR VOLUME 95.5 FL (78-98); MONOCYTES # (AUTO) 0.6 X10'3 (0-0.9); MONOCYTES % (AUTO) 8.7 % (2-12); NEUTROPHILS # (AUTO) 4.1 X10'3 (1.8-7.7); NEUTROPHILS % (AUTO) 59.4 % (42-75); PLATELET COUNT 329 X10'3 (140-440); RED BLOOD COUNT 4.98 X10'6 (4.20-5.60); RED CELL DISTRIBUTION WIDTH 14.7 % (11.5-14.5); WHITE BLOOD COUNT 6.9 X10'3 (4.5-11.0)
[2020-03-18 15:22] LABS: D-DIMER 0.69 MG/L FEU (0-0.50)
[2020-03-18 15:26] LABS: ALANINE AMINOTRANSFERASE 24 U/L (12-78); ALBUMIN 4.1 G/DL (3.4-5.0); ALKALINE PHOSPHATASE 75 IU/L (46-116); ANION GAP 9 (8-16); ASPARTATE AMINO TRANSFERASE 13 U/L (10-37); BILIRUBIN,TOTAL 0.5 MG/DL (0.1-1.0); BLOOD UREA NITROGEN 21 MG/DL (7-18); BUN/CREATININE RATIO 16.8 (6.6-38.0); CALCIUM 9.5 MG/DL (8.5-10.1); CHLORIDE 102 MMOL/L (99-107); CREATININE 1.25 MG/DL (0.40-0.90); GLUCOSE 134 MG/DL (70-104); POTASSIUM 4.3 MMOL/L (3.5-5.1); SODIUM 141 MMOL/L (135-145); TOTAL PROTEIN 8.3 G/DL (6.4-8.2); eGFR 41 ML/MIN
[2020-03-18] MEDS ORDERED: iohexol 350MG/ML 100ml bottle IV ONE (16:10)
--- NOTE | 2020-03-18 16:28 | NUR ---
BACK FROM CT
[2020-03-18 16:44] LABS: CLARITY,URINE SLIGHTLY CLOUDY (Clear); COLOR,URINE YELLOW (Yellow); GLUCOSE, URINE NEGATIVE (Neg); KETONES,URINE NEGATIVE (Neg); LEUKOCYTE ESTERASE ,URINE NEGATIVE (Neg); NITRITES, URINE NEGATIVE (Neg); OCCULT BLOOD,URINE NEGATIVE (Neg); PROTEIN,URINE TRACE mg/dl (Neg)
[2020-03-18 16:46] LABS: UA COLLECTION TYPE STRAIGHT CATH
[2020-03-18] MEDS ORDERED: PANT-47 PO (16:48)
[2020-03-18] MEDS ORDERED: BUDE0.5A3 NEB (16:48)
[2020-03-18] MEDS ORDERED: ATOR40TA72 PO (16:48)
[2020-03-18] MEDS ORDERED: GABA300C (16:48)
[2020-03-18] MEDS ORDERED: LEVE250T4 PO (16:48)
[2020-03-18] MEDS ORDERED: LEVO25TA7 PO (16:48)
[2020-03-18] MEDS ORDERED: CARV25TA2 PO (16:48)
[2020-03-18] MEDS ORDERED: DILT240C92 PO (16:48)
[2020-03-18] MEDS ORDERED: FENO145T25 PO (16:48)
[2020-03-18] MEDS ORDERED: CYAN-51 PO (16:48)
[2020-03-18] MEDS ORDERED: DOCU-22 PO (16:48)
[2020-03-18] MEDS ORDERED: IPRA3AMP31 (16:48)
[2020-03-18] MEDS ORDERED: LOSA50TA64 PO (16:48)
[2020-03-18] MEDS ORDERED: HYDR-3964 PO (16:48)
[2020-03-18 17:00] LABS: HYALINE CASTS >30 /LPF (NEGATIVE)
[2020-03-18 17:02] LABS: SQUAMOUS EPITHELIAL CELL,UR MODERATE /LPF (FEW)
[2020-03-18 17:03] LABS: FINE GRANULAR CAST 0-3 /LPF (NEGATIVE); MUCUS STRANDS MODERATE /LPF (Neg)
[2020-03-18 17:05] LABS: CELLULAR CAST 0-4 /LPF (NEGATIVE)
[2020-03-18 17:06] LABS: WBC CASTS 0-3 /LPF (NEGATIVE); WBC CLUMPS,URINE FEW /HPF (NEGATIVE)
[2020-03-18 17:07] LABS: BACTERIA,URINE FEW /HPF (Neg); RENAL CELLS, URINE MANY /HPF
[2020-03-18 17:08] LABS: RBC,URINE 0-2 /HPF (0-2)
--- NOTE | 2020-03-18 17:15 | NUR ---
pt too unsteady to stand for orthostatic vs, provider aware.
[2020-03-18] MEDS ORDERED: normal saline 1000ml 1,000 ML IV ONE (17:25)
[2020-03-18] MEDS ORDERED: CEPH250T PO (18:10)
[2020-03-18 19:19] VITALS: BP 149/99
[2020-03-19] MEDS ORDERED: HYDR-3965 PO (15:39)
[2020-03-19] MEDS ORDERED: DOCU100C40 PO (15:39)
[2020-03-19] MEDS ORDERED: OXYC-145 PO (15:48)
== END 2020-03-18 19:45 | disposition home or self-care (01) ==
LOC: ER 13:54
DX: I48.91 Unspecified atrial fibrillation (principal); R07.89 Other chest pain; N39.0 Urinary tract infection, site not specified; I10 Essential (primary) hypertension; J44.9 Chronic obstructive pulmonary disease, unspecified; R06.89 Other abnormalities of breathing; E11.9 Type 2 diabetes mellitus without complications; Z86.69 Personal history of other diseases of the nervous system and sense organs; Z95.0 Presence of cardiac pacemaker; Z98.890 Other specified postprocedural states; Z88.2 Allergy status to sulfonamides; Z88.0 Allergy status to penicillin; Z88.8 Allergy status to other drugs, medicaments and biological substances; Z79.899 Other long term (current) drug therapy; Z79.01 Long term (current) use of anticoagulants
CPT/HCPCS: 36415; 71045; 71275; 80053; 81001; 82948; 83880; 84484; 85025; 85379; 87088; 96360; 99285; J7030; Q9967; 93005

== ENCOUNTER 2020-03-19 11:38 | Emergency (ER) | payer MEDICARE, MEDICAID ==
[~2020-03-19] VITALS: Ht 167.6 cm; Wt 118.2 kg
[~2020-03-19 11:38] MED LIST changes: -ACET-2119 PO; -APIX5TAB3 PO; -ASCO500C18 PO; +ATOR40TA72 PO; +BUDE0.5A3 NEB; -CARV-50 PO; +CARV25TA2 PO; +CEPH250T PO; +CYAN-51 PO; -DILT-94 PO; +DILT240C92 PO; +DOCU-22 PO; -ESCI20TA56 PO; +FENO145T25 PO; -FENO160T PO; +GABA300C; +HYDR-3964 PO; -HYDR12.55 PO; +IPRA3AMP31; -LEVE250T PO; +LEVE250T4 PO; -LORA10CA PO; -LOSA25TA41 PO; +LOSA50TA64 PO; -NITR0.4T51 SL; -OSC500T PO; +PANT-47 PO; -PANT40TA54 PO; -SUMA25TA35 PO; -[UNRECOGNIZED DRUG - CODE] TOP
[2020-03-19] MEDS ORDERED: HYDR-3965 PO (15:39)
[2020-03-19] MEDS ORDERED: DOCU100C40 PO (15:39)
[2020-03-19] MEDS ORDERED: OXYC-145 PO (15:48)
[2020-03-19 16:13] VITALS: BP 135/65
== END 2020-03-19 16:24 | disposition home or self-care (01) ==
LOC: ER 11:39
DX: S92.811A Other fracture of right foot, initial encounter for closed fracture (principal); I48.91 Unspecified atrial fibrillation; I10 Essential (primary) hypertension; J44.9 Chronic obstructive pulmonary disease, unspecified; E11.9 Type 2 diabetes mellitus without complications; Z86.69 Personal history of other diseases of the nervous system and sense organs; Z98.890 Other specified postprocedural states; Z95.0 Presence of cardiac pacemaker; Z88.2 Allergy status to sulfonamides; Z88.0 Allergy status to penicillin; Z88.8 Allergy status to other drugs, medicaments and biological substances; Z79.899 Other long term (current) drug therapy; W06.XXXA Fall from bed, initial encounter; Y93.89 Activity, other specified; Y92.89 Other specified places as the place of occurrence of the external cause; Y99.8 Other external cause status
CPT/HCPCS: 73630; 99284